=== PATIENT | female | born 1975 | race Caucasian/White ===

== ENCOUNTER → 2024-02-22 10:56 | Outpatient (REF) | payer OTHER, SELFPAY ==
[2024-02-23 15:57] LABS: Varicella Zoster IgG (VZV) Positive
== END ==
LOC: OHS 10:56
PROVIDERS: ATTENDING PHYSICIAN Nurse Practitioner Family
DX: Z23 Encounter for immunization (principal)
CPT/HCPCS: 86480; 86787

== ENCOUNTER 2025-08-10 02:56 | Inpatient (IN) | payer BC, SELFPAY ==
[2025-08-10] VITALS (30 sets, daily range): BP systolic 96–155; BP diastolic 59–89; PULSE 82–86; BMI 22.7
--- NOTE | 2025-08-10 01:44 | ED.GENMED ---
History of Present Illness
General
Chief Complaint: Dizziness
Time Seen by Provider: 08/10/25 01:31
History of Present Illness
History of Present Illness:
Patient is a 50-year-old woman with history of reflux, duodenal ulcer, gastritis presenting to the emergency department with lightheadedness. 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 She checked
her heart rate and it was in the 130s. She notes that lately with movement she has been becoming more lightheaded and dizzy. She states that she has rheumatoid arthritis and has been taking about 6 pills of Advil a day. She also notes that last
week she had a URI and was taking additional Advil. Last week she did have 3 episodes of melanotic stool. She did decrease her Advil and restarted her PPI. She does note that she is not compliant with her PPI. She last had a EGD in 2019 that
showed a duodenal ulcer as well as gastritis. She has not followed up with GI since then. She did have routine blood work done for her rheumatoid arthritis last week which showed a hemoglobin of 7.1. No chest pain hemoptysis hematemesis or
hematochezia. No abdominal pain. No vomiting or diarrhea. She does feel slightly dehydrated though has been trying to maintain hydration on shift.
Past History
Past History
ED Past Medical History: Other (Duodenal ulcer, RA)
ED Past Surgical History: Other (Nasal Polyps)
Social History
Tobacco: Non-smoker
Alcohol: None
Personal:
Living: with family
Employment: Employed
Phy Exam
Physical Exam
Physical Exam:
GENERAL: in no acute distress
HEENT: normocephalic, extraocular movements intact, dry oral mucosa
NECK: normal inspection
RESPIRATORY: no respiratory distress, clear to auscultation bilaterally
CARDIOVASCULAR: regular rhythm tachycardic rate
ABDOMEN/: soft, non-distended, non-tender to palpation, no rebound or guarding
EXTREMITIES: non-tender, no edema/swelling
NEUROLOGIC: awake and alert, moves all extremities
SKIN: warm
Course
Orders/Labs/Results
Orders:
Orders
08/10/25 01:07
EKG [Electrocardiogram (*1)] Urgent
Reason for Study: Bradycardia / Tachycardia
EKG- Treatment ONCE
08/10/25 01:34
Type And Crossmatch [Type+Screen] Urgent
Complete Blood Count/With Diff Urgent
Comprehensive Metabolic Panel Urgent
08/10/25 01:44
0.9% Sodium Chloride 1000 ml [Nss] 1,000 ml IV BOLUS
08/10/25 01:54
* Blood Bank Products Urgent
Blood Bank Products: *Packed RBC Leuko (PRBC's
Quantity: 1
Transfuse Today: Yes
Reason: Anemia
Abnormal Lab Results
08/10/25
01:34
WBC 4.5 L 10^3/uL
(4.8-10.8)
RBC 3.26 L 10^6/uL
(4.20-5.40)
Hgb 6.6 L* g/dL
(12.0-16.0)
Hct 22.2 L %
(37.0-47.0)
MCV 68.1 L fL
(81.0-99.0)
MCH 20.2 L pg
(27.0-31.0)
MCHC 29.7 L g/dL
(33.0-37.0)
RDW 17.2 H %
(11.5-14.5)
Absolute Lymphs (auto) 1.0 L 10^3/uL
(1.2-3.4)
Sodium 134 L mmol/L
(135-145)
Glucose 103 H mg/dl
(70-99)
08/10/25 01:34
08/10/25 01:34
Vital Signs
Initial and Last Documented VS:
Initial Vital Signs
Temp Pulse Resp BP Pulse Ox
97.4 F 121 24 155/89 100
08/10/25 01:02 08/10/25 01:02 08/10/25 01:02 08/10/25 01:02 08/10/25 01:02
Last Documented Vital Signs
Temp Pulse Resp BP Pulse Ox
97.4 F 123 11 155/89 100
08/10/25 01:02 08/10/25 01:30 08/10/25 01:30 08/10/25 01:02 08/10/25 01:50
MDM/Problems Addressed
Differential Diagnosis Includes:
Patient is a 50-year-old woman with history of duodenal ulcer, gastritis, reflux, rheumatoid arthritis who is presenting to the emergency department with episodes of lightheadedness upon standing, low hemoglobin outpatient as well as 3 episodes of
melanotic stool last week. On arrival vitals are notable for heart rate in the 120s. Exam does show dry oral mucosa. Concern for dehydration versus anemia secondary to upper GI bleed. Considered PE though less likely given patient's history and
exam. Will check blood work. EKG per my interpretation sinus tachycardia. Will give IV fluids in the interim. Anticipate admission.
*Pulse Oximetry
SaO2: 100
Patient hypoxic: no
*Critical Care Note
Total Time (30-74mins, 75-104mins- exclusive of procedures): Not Applicable
Update Note
Update Note:
Blood work notable for microcytic anemia. Patient has been consented for blood. Of note patient does state that she had IV iron transfusion in the past and needed steroids given concern for possible reaction related to her RA. I did discuss with
blood bank about a reaction of RA and PRBCs. None that they are aware of. out of abundance of caution we will give patient blood at a slower rate.
discussed with hospitalist who excepted patient to their service.
ED Attending Note
-
Portions of this chart may have been created with voice recognition software.� Occasional wrong word or��sound alike� substitutions may have occurred due to the inherent limitations of voice recognition software.
Discharge Plan
Departure
Patient Disposition: Admit
Date of Disposition: 08/10/25
Time of Disposition: 02:15
Presentation/result/management discussed w/ accepting MD/DO: Hospitalist
Discharge Problem:
Anemia
Prescriptions:
No Action
Mometasone Furoate [Nasonex] 17 GM [place].Pump
17 gm NS BID Qty: 1 0RF
Rx Instructions:
2 sprays in each nostril
Referrals:
Varsha Munoz DO [Family Provider, Family Practice]
Interventions
Interventions:
*Risk Screen - Suicide Last Done: 08/10/25 01:02
*General Assessment Last Done: 08/10/25 01:02
*Neglect/Abuse Screening Last Done: 08/10/25 01:02
*ED- Fall Risk Assessment Last Done: 08/10/25 01:37
*ED COVID-19 Vaccine History Last Done: 08/10/25 01:37
*ED Influenza Vaccine History Last Done: 08/10/25 01:37
Discharge Date and Time
Print Language: HUNGARIAN
[2025-08-10 01:54] LABS: Hematocrit 22.2 % (37.0-47.0); Hemoglobin 6.6 g/dL (12.0-16.0); Mean Corp Hgb Conc. 29.7 g/dL (33.0-37.0); Mean Corpuscular Volume 68.1 fL (81.0-99.0); Nucleated Red Blood Cells % 0 %; Platelet Count 270 10^3/uL (130-400); Red Cell Dist. Width 17.2 % (11.5-14.5)
[2025-08-10 02:14] LABS: ALT (SGPT) 16 U/L (0-35); AST (SGOT) 22 U/L (14-36); Albumin 4.4 g/dl (3.5-5.0); Alkaline Phosphatase 40 U/L (38-126); Blood Urea Nitrogen 14 mg/dl (7-17); Calcium 8.9 mg/dl (8.4-10.2); Carbon Dioxide 25 mmol/L (22-30); Chloride 104 mmol/L (98-107); Glucose 103 mg/dl (70-99); Potassium 3.8 mmol/L (3.5-5.1); Sodium 134 mmol/L (135-145); Total Protein 7.0 g/dl (6.3-8.2); eGFR > 60.00
--- NOTE | 2025-08-10 02:40 | HPS.HSE ---
Family Physician
-
Family Physician: Varsha Munoz, DO
Chief Complaint
-
Dizziness
History of Present Illness
This is a 37-year-old with past medical history of duodenal ulcer, gastritis, rheumatoid arthritis on Actemra, methotrexate and prednisone, Presents to the emergency department with lightheadedness that became worse with standing today.
Patient reports recent URI and has been taking a lot of NSAIDs. She reports that she did notice some melanotic stool last week and she has been having orthostatic dizziness. Symptoms became worse today while she was walking and she noticed her
heart rate in the 130s. She said her last bowel movement was 2 days ago and it was soft and brown. She reported that her last hemoglobin was 9 in June. She was diagnosed with iron deficiency in November and was to get an iron infusion. However
she did develop a reaction to iron dextran and she never followed up. She tried oral iron supplementation but did not tolerated due to stomach upset.
Patient reports diagnosis of duodenal ulcer in 2018 and had a EGD at that time. Was placed on Prilosec. Recently she has not been taking the Prilosec regularly. She also takes 2 mg of prednisone as well as methotrexate for RA. She denies any
alcohol use.
On arrival in the emergency department heart rate was in the 120s, blood pressure was 135/89 and she was satting 100% on room air. She was afebrile. Hemoglobin was 6.6 with MCV of 68 and normal WBCs and platelet. Electrolytes BUN/creatinine were
all in the normal range with a BUN of 14 and a creatinine of 0.6. LFTs were normal. ECG with sinus tachycardia at a rate of 112.
Medical History
Past Medical History
Past Medical History: Reports GERD (History of peptic ulcer disease), Hypothyroidism and Other (Rheumatoid arthritis.)
Past Surgical History: Reports None
Social History
Tobacco: Non-smoker
Alcohol: None
Drug: None
Family History
Family History: Not pertinent
Allergies / Home Medications
Allergies reflects when Allergies were last updated in [employer].
Home Medications with original date entered in [employer]
Allergy/Medication List:
Allergies
Allergy/AdvReac Type Severity Reaction Status Date / Time
No Known Allergies Allergy Verified 10/06/20 18:18
Home Medications
Prednisone 2 mg tablets, 2 mg p.o. at bedtime
Levothyroxine 112 mcg tablet, 112 mcg p.o. daily
Methotrexate 10 mg subcutaneous, 10 mg subcu weekly
Review of Systems
-
Constitutional: Reports No Symptoms
EENT: Reports No Symptoms
Respiratory: Reports No Symptoms
Cardiac: Reports No Symptoms
Abdomen/GI: Reports Black Stools
: Reports No Symptoms
Musculoskeletal: Reports No Symptoms
Skin: Reports No Symptoms
Neurological: Reports Dizzy
Endocrine: Reports No Symptoms
Hematologic/Lymphatic: Reports No Symptoms
Psych: Reports No Symptoms
Physical Exam
Vital Signs
Vital Signs
Temp Pulse Resp BP Pulse Ox
97.4 F 123 11 155/89 100
08/10/25 01:02 08/10/25 01:30 08/10/25 01:30 08/10/25 01:02 08/10/25 01:50
Physical Exam
General: Well Developed, Well Nourished and No Apparent Distress
HEENT: NormoCephalic, Moist mucous membranes and Atraumatic
Respiratory: Clear
Cardiac: S1/S2 and Regular Rhythm; No Murmur or Rub
GI: Soft, Non Tender, Non Distended and Normal Bowel Sounds; No Organomegaly
Rectal: Deferred by Provider
Musculoskeletal: No Clubbing, No Cyanosis and No Edema
Skin: No Rash
Neuro: Nonfocal/grossly intact
Laboratory Results
-
08/10/25 01:34
08/10/25 01:34
Laboratory Results
Total Bilirubin 0.4 mg/dl (0.2-1.3) 08/10/25 01:34
AST 22 U/L (14-36) 08/10/25 01:34
ALT 16 U/L (0-35) 08/10/25 01:34
Alkaline Phosphatase 40 U/L (38-126) 08/10/25 01:34
Data Reviewed
-
Medical Tests (Nuc Med, Echo, EKG etc): Image Personally Visualized and interpreted
Lab Data: Labs Reviewed by me
Old Records: Reviewed
Impression/Plan
-
IMPRESSION:
50-year-old female with past medical history significant for GERD and duodenal ulcer presents to the emergency department with tachycardia and orthostatic dizziness. Found to have a hemoglobin of 6.6. Recent episodes of increased NSAID use and
melanotic stools. Guaiac positive stool examination. Likely gastritis versus new peptic ulcer.
PLAN:
GI bleed -suspect upper GI bleed secondary to NSAIDs causing gastritis or worsening gastric ulcer. She is hemodynamically stable. Hemoglobin 6.6. Platelets are normal.
-Admit to IMU
-N.p.o. for now except sips and ice chips
-Type and screen
-Transfusing 1 unit now
-Trend H&H and transfuse for hemoglobin less than 7
-Check iron panel
-PPI IV drip
-GI consultation
Iron deficiency anemia -reports history of iron deficiency diagnosed in November. MCV 68. Did not tolerate iron dextran.
- Iron panel as above
- Transfusion
- Consider alternative formulation such as Ferric gluconate vs oral supplementation
DVT prophylaxis with SCDs
CODE STATUS�full code
[2025-08-10] MEDS: NSS 1000 IV (03:04)
[2025-08-10] MEDS: PROTONIX IV 80 MG IV (03:05)
[2025-08-10] MEDS: PROTONIX 100 IV ×3 (03:05→21:41)
[2025-08-10 03:11] LABS: Total Iron Binding Capacity 445 ug/dl (265-497)
[2025-08-10 03:22] LABS: Iron < 20 ug/dl (37-170)
[2025-08-10 03:38] LABS: Ferritin 4.0 ng/ml (11.1-264.0)
[2025-08-10] MEDS: XANAX 0.25 MG PO (04:22)
[2025-08-10] MEDS: TYLENOL 650 MG PO ×2 (06:16→21:58)
[2025-08-10] MEDS: SYNTHROID 112 MCG PO (06:17)
--- NOTE | 2025-08-10 07:36 | PTCARENOTE ---
Received verbal report from WINSOME Vogel. Pt arrived to floor via stretcher with at bedside with blood transfusing. Protonix gtt infusing per Rx. Patient aaox3, denies pain. NSR on monitor. SpO2 99% on RA. VS and assessment as documented.
Admission completed. Patient resting in bed with call hdez in reach.
--- NOTE | 2025-08-10 07:53 | CON.GI ---
Addendum entered and electronically signed by Tonia Ocampo MD 08/10/25 09:51:
I saw and examined the patient.
The JOCKEY'S AGENT's note was reviewed and I agree with the note.
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
daily before bedtime, history of DU with UGIB from NSAID use in 2019 and rest of medical history as below who presented to the emergency room with symptoms of fatigue and dizziness and was noted to have a hemoglobin of 6.6 and received 1 unit of
packed red blood cells. Her iron studies are also consistent with iron deficiency anemia with a ferritin of 4 but she says that she was diagnosed with iron deficiency anemia in November and was scheduled for an iron infusion but had an allergic
reaction and has not followed for repeat. about 7-10 days ago had an episode of melena with maroon stool and then for a few days later she had black stool but the last 4 to 5 days her stools have been brown and her last BM was about 2 days ago. She
has been off the PPI. Currently denies any abdominal pain. No nausea vomiting or hematemesis. She had been increasing more NSAID use recently because of recent URI also.
Assessment and plan symptomatic significant anemia likely from acute blood loss anemia and also chronic iron deficiency anemia which was diagnosed in November. She had acute blood loss with maroon stools and black stools about 7 to 10 days ago but for
the last couple of days her stools have been brown most likely the bleeding has resolved and is most likely related to recurrent PUD she has history of this in 2019 from NSAID use and recently has been using more NSAIDs and is also on chronic
prednisone therapy for RA. I encouraged her to avoid NSAID use and will need a PPI indefinitely given that she is presented twice with upper GI bleed from PUD. Will schedule her for endoscopy on Tuesday but will be performed sooner if she has any
further bleeding. She received 1 unit of packed red blood cells but most likely will repeat hemoglobin and may need another unit based on the hemoglobin. She will also need follow-up with hematology for alternate iron infusions as outpatient she
apparently had an allergic reaction to one of the IV iron infusions in the past. Was unable to tolerate oral iron. Apparently her colonoscopy was also in 2019 along with her endoscopy in 2019 at [facility] but most likely will also need to
repeat colonoscopy which she can follow-up with her outpatient GI at [place] after DC or with us.
Original Note:
Consultation
-
Date/Time Consultation Requested: 08/10/25 220
Date/Time Consultation Performed: 08/10/25 18
Requesting Provider: Dr. Guerrero
Performing Provider: Dr. Ocampo/LUIGI Ling
Reason for Consultation: symptomatic anemia, GI Bleed, Hx DU
Medical History
Chief Complaint / HPI
Chief Complaint: dizziness
History of Present Illness:
50-year-old female with past medical history of RA, hypothyroidism GERD, history of duodenal ulcer (2019), tracheal stenosis status postdilatation, current medications include prednisone 2 mg, methotrexate, Actemra, levothyroxine and ibuprofen
anywhere between 800 mg and 1200 mg at bedtime presents to the emergency room with dizziness, lightheadedness while at work. 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 She had a heart rate in the 130s. 1 week ago she had episodes of melena and maroon stool. She
proceeded to the emergency room for further evaluation. She does have a history of duodenal ulcer with bleeding secondary to NSAID and prednisone use in 2019 in the [facility] area. She states at that time she had 2 duodenal ulcers and
gastritis. She was placed on PPI but is not compliant with this. She also had a colonoscopy at that time was 'normal'. She was recommended 10-year follow-up. She has some mild dyspnea on exertion but denies any chest pain or shortness of breath.
Her last bowel movement was 2 days ago. She denies any fevers, chills, nausea, vomiting, dysphagia or odynophagia. She denies any early satiety or unintended weight loss. She presents to the emergency room with a hemoglobin of 6.6. She was
given 1 unit of packed red blood cells that just finished at this present time. Repeat hemoglobin will be obtained at 9 AM. She states that she is feeling a 'little bit better'. WBC 4.5, hemoglobin 6.6, hematocrit 22.2, platelets 270, MCV 68.1,
MCV 20.2, sodium 134, potassium 3.8, BUN 14, creatinine 0.6, glucose 103, iron less than 20, TIBC 445, percent iron saturation unable to be calculated, ferritin 4, total bilirubin 0.4, AST 22, ALT 16, alk phos 40, albumin 4.4
Past Medical History
Past Medical History: Other (Rheumatoid arthritis, hypothyroidism, GERD, duodenal ulcer, tracheal stenosis status post dilatation)
Past Surgical History: Other (Tracheal stenosis dilatation, nasal polyps, septum surgery, hand surgery)
Social History
Tobacco: Non-Smoker
Alcohol: None
Drug: None
Employment: Employed
Family History
Family History: Other (Grandfather with possible colon cancer otherwise no family history of GI malignancy or IBD)
Allergies / Home Medications
Allergy/AdvReac Type Severity Reaction Status Date / Time
No Known Allergies Allergy Verified 10/06/20 18:18
�Medication �Instructions �Recorded
Mometasone Furoate [Nasonex] 17 gm NS BID ##1 10/18/21
levothyroxine 112 mcg tablet 112 mcg PO DAILY Thyroid 08/10/25
prednisone 2 mg tablet,delayed 2 mg PO HS RA 08/10/25
release
Review of Systems
-
All other systems: A 12 pt ROS was Negative except as stated above in HPI
Vital Signs
Temp Pulse Resp BP Pulse Ox
98.3 F 80 16 107/69 99
08/10/25 07:12 08/10/25 07:12 08/10/25 07:12 08/10/25 07:12 08/10/25 07:12
Physical Exam
Exam
General: No Apparent Distress
HEENT: Anicteric
Respiratory: Clear
Cardiac: Regular Rhythm
GI: Soft, Non Tender, Non Distended and Normal Bowel Sounds
Skin: Warm and Dry
Neuro: AO x 3
Psych: Calm
Results
WBC 4.5 10^3/uL (4.8-10.8) L 08/10/25 01:34
Hgb Cancelled 08/10/25 11:55
Hct Cancelled 08/10/25 11:55
MCV 68.1 fL (81.0-99.0) L 08/10/25 01:34
Plt Count 270 10^3/uL (130-400) 08/10/25 01:34
Absolute Neuts (auto) 2.9 10^3/uL (1.4-6.5) 08/10/25 01:34
Sodium 134 mmol/L (135-145) L 08/10/25 01:34
Potassium 3.8 mmol/L (3.5-5.1) 08/10/25 01:34
Chloride 104 mmol/L (98-107) 08/10/25 01:34
Carbon Dioxide 25 mmol/L (22-30) 08/10/25 01:34
BUN 14 mg/dl (7-17) 08/10/25 01:34
Creatinine 0.6 mg/dL (0.6-1.0) 08/10/25 01:34
Calcium 8.9 mg/dl (8.4-10.2) 08/10/25 01:34
Total Bilirubin 0.4 mg/dl (0.2-1.3) 08/10/25 01:34
AST 22 U/L (14-36) 08/10/25 01:34
ALT 16 U/L (0-35) 08/10/25 01:34
Alkaline Phosphatase 40 U/L (38-126) 08/10/25 01:34
Diagnostic Image Results:
None this admission
Prior GI Procedures:
EGD: [facility]. Per patient '2 duodenal ulcers, gastritis'. Records unavailable to us
Colonoscopy: 2018, [facility]. Per patient 'normal'. Recommended repeat colonoscopy 10 years. Records unavailable to us
Assessment / Plan
-
50-year-old female with past medical history of RA, hypothyroidism GERD, history of duodenal ulcer (2019), tracheal stenosis status postdilatation, current medications include prednisone 2 mg, methotrexate, Actemra, levothyroxine and ibuprofen
anywhere between 800 mg and 1200 mg at bedtime presents to the emergency room with dizziness, lightheadedness while at work. 1 week ago she had melena and maroon stools. No bowel movement in 2 days. Hemoglobin is 6.6. BUN is within normal
limits. She does have iron deficiency anemia. Currently transfuse 1 unit. Awaiting repeat labs. Currently not on PPI therapy.
Impression:
Symptomatic anemia
Melena/maroon stool 1 week ago
History of gastric ulcers (2019)
RA, on prednisone 2 mg, methotrexate and Actemra
NSAID use daily (ibuprofen 800-1200 mg nightly)
Plan:
- Patient already received 1 unit of packed red blood cells, repeat hemoglobin due at 9 AM. Anticipate patient may need another unit of packed red blood cells considering degree of anemia, symptomatic and iron deficiency.
- Continue pantoprazole drip
- Okay for clear liquids, no red
- Will plan on endoscopy prior to discharge
- Repeat hemoglobin 9 AM, 3 PM, CBC in a.m.
- Discussed with patient no further NSAIDs and compliance with PPI daily
- Further recommendations to be fourth coming
-
-
Thank you for consultation and allowing me to participate in the patient's care. Please call the automation test engineer GI physician during the after hours with any questions or concerns.
[2025-08-10] MEDS: D5/0.45%NACL 1000 IV (08:25)
[2025-08-10 09:59] LABS: Hematocrit 24.1 % (37.0-47.0); Hemoglobin 7.3 g/dL (12.0-16.0); Mean Corp Hgb Conc. 30.3 g/dL (33.0-37.0); Mean Corpuscular Volume 71.9 fL (81.0-99.0); Platelet Count 245 10^3/uL (130-400); Red Cell Dist. Width 17.9 % (11.5-14.5)
[2025-08-10 10:15] LABS: Blood Urea Nitrogen 10 mg/dl (7-17); Calcium 8.3 mg/dl (8.4-10.2); Carbon Dioxide 26 mmol/L (22-30); Chloride 109 mmol/L (98-107); Glucose 116 mg/dl (70-99); Potassium 3.6 mmol/L (3.5-5.1); Sodium 135 mmol/L (135-145); eGFR > 60.00
--- NOTE | 2025-08-10 11:33 | W.PN.HOSP.TC ---
Today's Communication/Plan
-
Blood transfusion. PPI.
Assessment / Plan
Assessment / Plan
Physical exam:
General: Acutely ill
HEENT: Normocephalic, Atraumatic and Moist Mucous Membranes
Respiratory: Clear to Auscultation; Negative Wheezes, Rales or Rhonchi
Cardiac: Regular Rhythm and S1/S2
GI: Soft, Nontender and Nondistended
Musculoskeletal: No Clubbing, No Cyanosis and No Edema
Neuro: Awake, Alert and Oriented
Psych: Calm
A/P:
Acute GI bleed:
Continue IV Protonix drip
GI consult appreciated
Continue to monitor hemoglobin
Plan for EGD on Tuesday
Acute blood loss anemia/KAYLYNN:
Status post blood transfusion
Will transfuse 1 unit of blood today since patient is still with symptomatic anemia and also in preparation for possible procedure.
Continue to monitor hemoglobin posttransfusion
Rheumatoid arthritis:
On methotrexate and steroids as outpatient as well as NSAIDs and Actemra
History of peptic ulcer disease in the past:
Not on PPI prior to admission
Hypothyroidism:
Continue thyroid replacement
DVT prophylaxis:
SCDs
CODE STATUS:
Full code
Total time spent on today's encounter was 52 minutes which included time spent in counseling the patient/family regarding diagnosis and treatment plan as listed above, goals of care, and symptom management. Case was discussed with nursing staff,
specialists, and care coordinators/case management. All labs and imaging personally reviewed by me. Remainder the time spent in detailed review of previous records, lab data, imaging, and other medical provider documentation.
Anticipated Discharge: > 48 hours
Subjective/Interval History
-
Date of Service: August 10, 2025
Patient feels with lightheadedness this morning. No abdominal pain or hematemesis. No bowel movement yet.
Objective Data
-
Labs:
Laboratory Results
08/10/25 08/10/25 08/10/25
01:34 09:00 09:46
WBC 4.5 L 3.3 L
Hgb 6.6 L* Pending 7.3 L
Hct 22.2 L Pending 24.1 L
Plt Count 270 245
Sodium 134 L 135
Potassium 3.8 3.6
Chloride 104 109 H
Carbon Dioxide 25 26
BUN 14 10
Creatinine 0.6 0.6
Glucose 103 H 116 H
Calcium 8.9 8.3 L
Total Bilirubin 0.4
AST 22
ALT 16
Alkaline Phosphatase 40
08/10/25 08/10/25
11:55 15:00
WBC
Hgb Cancelled Pending
Hct Cancelled Pending
Plt Count
Sodium
Potassium
Chloride
Carbon Dioxide
BUN
Creatinine
Glucose
Calcium
Total Bilirubin
AST
ALT
Alkaline Phosphatase
Vital Signs:
Vital Signs
Temp Pulse Resp BP Pulse Ox
97.8 F 86 20 106/71 98
08/10/25 11:23 08/10/25 11:23 08/10/25 11:23 08/10/25 11:23 08/10/25 11:02
I&O
08/09/25 08/10/25 08/11/25
06:59 06:59 06:59
Intake Total 0 / 0 250 / 250
Balance 0 / 0 250 / 250
--- NOTE | 2025-08-10 13:27 | CM ---
Patient seen at bedside in IMU. Patient states that she lives with her in a 2 story home. Patient has no DME and she uses the [facility] in [place] for pharmacy needs. Patient PCP is Dr. Varsha Munoz. Patient plan is for home with no needs.
Patient works here at [employer]. Patient plan is for discharge home with no needs. CM will continue to follow for discharge planning needs.
Plan; home with no needs anticipated
[2025-08-10 16:55] LABS: Hematocrit 24.5 % (37.0-47.0); Hemoglobin 7.8 g/dL (12.0-16.0)
--- NOTE | 2025-08-10 17:26 | PTCARENOTE ---
Pt's assessment and care as documented. Aox3. VSS. 2U PRBC's administered, pt tolerated well. Labs drawn and sent. Tolerating clear liquids. Ringing appropriately, call hdez within reach.
--- NOTE | 2025-08-10 19:30 | PTCARENOTE ---
pt aao, no c/o pain. denies dizziness and no bm's. pt assisted to bsc w/o issue. reviewed plan for egd on tuesday. call hdez in reach.
[2025-08-10] MEDS: DELTASONE 2 MG PO (21:58)
[2025-08-11] VITALS (16 sets, daily range): BP systolic 90–136; BP diastolic 59–88
[2025-08-11] MEDS: D5/0.45%NACL 1000 IV (03:02)
[2025-08-11] MEDS: SYNTHROID 112 MCG PO (05:49)
[2025-08-11 06:04] LABS: Hematocrit 25.2 % (37.0-47.0); Hemoglobin 7.9 g/dL (12.0-16.0); Mean Corp Hgb Conc. 31.3 g/dL (33.0-37.0); Mean Corpuscular Volume 72.6 fL (81.0-99.0); Platelet Count 213 10^3/uL (130-400); Red Cell Dist. Width 18.3 % (11.5-14.5)
[2025-08-11 06:36] LABS: Blood Urea Nitrogen 5 mg/dl (7-17); Calcium 8.3 mg/dl (8.4-10.2); Carbon Dioxide 24 mmol/L (22-30); Chloride 111 mmol/L (98-107); Estimated Creatinine Clearance 104 ml/min; Glucose 92 mg/dl (70-99); Potassium 4.1 mmol/L (3.5-5.1); Sodium 139 mmol/L (135-145); eGFR > 60.00
[2025-08-11] MEDS: PROTONIX 100 IV (07:51)
--- NOTE | 2025-08-11 09:11 | W.PN.GI.CBS2 ---
Today's Communication / Plan
-
EGD in AM
Assessment / Plan
-
50-year-old female with past medical history of RA, hypothyroidism GERD, history of duodenal ulcer (2019), tracheal stenosis status postdilatation, current medications include prednisone 2 mg, methotrexate, Actemra, levothyroxine and ibuprofen
anywhere between 800 mg and 1200 mg at bedtime presents to the emergency room with dizziness, lightheadedness while at work. 1 week ago she had melena and maroon stools. No bowel movement in 2 days. Hemoglobin is 6.6. BUN is within normal
limits. She does have iron deficiency anemia. Currently transfuse 1 unit. Awaiting repeat labs. Currently not on PPI therapy.
Impression:
Symptomatic anemia
Melena/maroon stool 1 week ago
History of gastric ulcers (2019)
RA, on prednisone 2 mg, methotrexate and Actemra
NSAID use daily (ibuprofen 800-1200 mg nightly)
Plan:
- Hemoglobin improved with 2 units of packed red blood cells since admission
- Continue pantoprazole will change to twice daily and DC drip since no further active bleeding since admission
- Okay for low residue diet today and n.p.o. past MN for endoscopy tomorrow
- Discussed with patient no further NSAIDs and compliance with PPI daily
- KAYLYNN -Will also need hematology follow-up as outpatient for iron infusion if able to tolerate a different form of iron and if unable to do then encouraged her to take oral iron with vitamin C
- She does want to schedule colo with us after DC will try to get records from her outpatient GI at [facility]
Subjective
Subjective
Date of Service: August 11, 2025
No bowel movement since admission, received another unit of packed red blood cells yesterday and hemoglobin improved, denies abdominal pain or vomiting
Objective
Data Reviewed
Laboratory Data:
Laboratory Results
08/11/25 05:45
08/11/25 05:45
Laboratory Results
Total Bilirubin 0.4 mg/dl (0.2-1.3) 08/10/25 01:34
AST 22 U/L (14-36) 08/10/25 01:34
ALT 16 U/L (0-35) 08/10/25 01:34
Alkaline Phosphatase 40 U/L (38-126) 08/10/25 01:34
Vital Signs and I&O:
Vital Signs
Temp Pulse Resp BP Pulse Ox
98.0 F 64 16 103/75 99
08/11/25 07:54 08/11/25 06:10 08/11/25 06:10 08/11/25 06:10 08/11/25 06:10
I&O
08/10/25 08/11/25 08/12/25
06:59 06:59 06:59
Intake Total 0 / 0 2220 / 2220
Balance 0 / 0 2220 / 2220
Physical Exam
Physical Exam
Cardiology: Normal Sinus Rhythm
Pulmonary: Clear
GI: Soft, Non Distended, Non Tender and Normal Bowel Sounds
--- NOTE | 2025-08-11 12:06 | W.PN.HOSP.TC ---
Today's Communication/Plan
-
Continue PPI. Plan for EGD tomorrow
Assessment / Plan
Assessment / Plan
Physical exam:
General: Acutely ill
HEENT: Normocephalic, Atraumatic and Moist Mucous Membranes
Respiratory: Clear to Auscultation; Negative Wheezes, Rales or Rhonchi
Cardiac: Regular Rhythm and S1/S2
GI: Soft, Nontender and Nondistended
Musculoskeletal: No Clubbing, No Cyanosis and No Edema
Neuro: Awake, Alert and Oriented
Psych: Calm
A/P:
Acute GI bleed:
Change IV Protonix drip to IV Protonix twice daily
GI consult appreciated
Continue to monitor hemoglobin
Stop IV fluid
On low residue diet today and n.p.o. after midnight
Plan for EGD on Tuesday
Acute blood loss anemia/KAYLYNN:
Status post blood transfusion
Continue to monitor hemoglobin posttransfusion
Rheumatoid arthritis:
On methotrexate and steroids as outpatient as well as NSAIDs and Actemra
History of peptic ulcer disease in the past:
Not on PPI prior to admission
Hypothyroidism:
Continue thyroid replacement
DVT prophylaxis:
SCDs
CODE STATUS:
Full code
Total time spent on today's encounter was 35 minutes which included time spent in counseling the patient/family regarding diagnosis and treatment plan as listed above, goals of care, and symptom management. Case was discussed with nursing staff,
specialists, and care coordinators/case management. All labs and imaging personally reviewed by me. Remainder the time spent in detailed review of previous records, lab data, imaging, and other medical provider documentation.
Anticipated Discharge: 24 - 48 hours
Subjective/Interval History
-
Date of Service: August 11, 2025
Patient feels better overall today. No lightheadedness. No bowel movement yet. No abdominal pain nausea or vomiting. No hematemesis
Objective Data
-
Labs:
Laboratory Results
08/11/25
05:45
WBC 3.2 L
Hgb 7.9 L
Hct 25.2 L
Plt Count 213
Sodium 139
Potassium 4.1
Chloride 111 H
Carbon Dioxide 24
BUN 5 L
Creatinine 0.6
Glucose 92
Calcium 8.3 L
Vital Signs:
Vital Signs
Temp Pulse Resp BP Pulse Ox
98.0 F 84 16 121/82 98
08/11/25 07:54 08/11/25 08:00 08/11/25 06:10 08/11/25 08:00 08/11/25 10:00
I&O
08/10/25 08/11/25 08/12/25
06:59 06:59 06:59
Intake Total 0 / 0 2219 / 2219
Balance 0 / 0 2219 / 222
[2025-08-11] MEDS: D5/0.45%NACL IV (15:16)
--- NOTE | 2025-08-11 17:10 | PTCARENOTE ---
see nursing flowsheet. pt tolerating low residue diet. pt denies abd pain, nausea. no c/o weakness or dizziness. ambulated to br with supervision. pt reported brown bm with no blood and not tarry.
[2025-08-11] MEDS: NSS (PRESERVATIVE FREE) 10 ML IV (20:32)
[2025-08-11] MEDS: PROTONIX IV 40 MG IV (20:33)
[2025-08-11] MEDS: DELTASONE 2 MG PO (20:33)
[2025-08-11] MEDS: TYLENOL 650 MG PO (20:34)
[2025-08-12] VITALS (8 sets, daily range): BP systolic 106–135; BP diastolic 62–95
--- NOTE | 2025-08-12 04:05 | PTCARENOTE ---
Caring for pt overnight. aaox3, pleasant. Denies pain. No signs of bleeding. VSS. Remains NPO after midnight for EGD, pt aware. no assessment changed. NSR. Remains RA. Will monitor.
[2025-08-12] MEDS: SYNTHROID PO (04:06)
[2025-08-12 06:04] LABS: Blood Urea Nitrogen 10 mg/dl (7-17); Calcium 8.9 mg/dl (8.4-10.2); Carbon Dioxide 26 mmol/L (22-30); Chloride 108 mmol/L (98-107); Estimated Creatinine Clearance 104 ml/min; Glucose 101 mg/dl (70-99); Potassium 4.3 mmol/L (3.5-5.1); Sodium 138 mmol/L (135-145); eGFR > 60.00
[2025-08-12 06:20] LABS: Hematocrit 29.8 % (37.0-47.0); Hemoglobin 9.3 g/dL (12.0-16.0); Mean Corp Hgb Conc. 31.2 g/dL (33.0-37.0); Mean Corpuscular Volume 71.0 fL (81.0-99.0); Platelet Count 288 10^3/uL (130-400); Red Cell Dist. Width 19.2 % (11.5-14.5)
--- NOTE | 2025-08-12 08:06 | W.PN.HOSP.TC ---
Today's Communication/Plan
-
see A/P
Assessment / Plan
Assessment / Plan
A/P:
# Acute blood loss anemia/KAYLYNN
# Acute GI bleed
Status post 2 units blood transfusion
Continue to monitor hemoglobin
Hgb today 9.3
Changed IV Protonix drip to IV Protonix twice daily
GI on board, plan for EGD 08/12
IV iron while in the hospital with plan to switch to PO at the time of discharge
# Rheumatoid arthritis:
On methotrexate and steroids as outpatient as well as NSAIDs and Actemra
# History of peptic ulcer disease in the past:
Not on PPI prior to admission
# Hypothyroidism:
Continue thyroid replacement
DVT prophylaxis: SCDs
CODE STATUS: Full code
Anticipated Discharge: 24 - 48 hours
Subjective/Interval History
-
Date of Service: August 12, 2025
Objective Data
-
Labs:
Laboratory Results
08/12/25
05:32
WBC 5.8
Hgb 9.3 L
Hct 29.8 L
Plt Count 288 D
Sodium 138
Potassium 4.3
Chloride 108 H
Carbon Dioxide 26
BUN 10
Creatinine 0.6
Glucose 101 H
Calcium 8.9
Vital Signs:
Vital Signs
Temp Pulse Resp BP Pulse Ox
36.6 C 100 18 115/67 99
08/12/25 07:46 08/12/25 06:04 08/11/25 12:18 08/12/25 04:00 08/11/25 10:15
I&O
08/11/25 08/12/25 08/13/25
06:59 06:59 06:59
Intake Total 2220 / 2220 240 / 240
Balance 2220 / 2220 240 / 240
Review of Systems
-
History Source: Patient
All other systems: Reviewed and negative
Physical Exam
-
General: Well Developed, Well Nourished, No Apparent Distress, Comfortable and Conversant; Negative Respiratory Distress
HEENT: Normocephalic, Atraumatic, Nose Appears Normal and Ears Appear Normal; Negative Oxygen
Respiratory: Clear to Auscultation and Non Labored Respirations; Negative Accessory Resp Muscle Use
Cardiac: Regular Rhythm and S1/S2
GI: Soft, Nontender, Nondistended and Normal Bowel Sounds
Skin: Warm and Dry
Neuro: Awake, Alert, Oriented and AO x 3
Psych: Calm and Intact Judgement/Insight
Data Reviewed
-
Labs: Labs Reviewed by me
[2025-08-12] MEDS: NSS (PRESERVATIVE FREE) 10 ML IV (08:53)
[2025-08-12] MEDS: PROTONIX IV 40 MG IV (08:53)
--- NOTE | 2025-08-12 11:25 | PTCARENOTE ---
Patient for GI lab, transported via stretcher, at bedside and aware of plan of care.
--- NOTE | 2025-08-12 11:28 | W.PN.UPDATE ---
Update Note
Progress Note Update
Endoscopy revealed nonbleeding gastric ulcers, continue Protonix 40 mg twice daily.. Avoid NSAIDs. Will repeat endoscopy in 2 months along with colonoscopy as outpatient.. Okay for LA home later today from GI perspective
--- NOTE | 2025-08-12 12:08 | PTCARENOTE ---
Patient returned from GI lab, she is awake, alert and oriented x3. Denies any pain, swallow and gag intact. Talking with friend and at bedside. VSS, NSR 74 HR.
--- NOTE | 2025-08-12 15:07 | CM ---
F/U: Patient required blood transfusions so now monitoring hemoglobin. PLAN: Anticipate Home No Needs.
--- NOTE | 2025-08-12 15:50 | W.DCSUMMARY ---
Discharge Summary
Discharge Data
Date of Admission: 08/10/25
Date of Discharge: 08/12/25
Total time spent discharging patient (in min): 40
-
Pending Results: No
Hospital Course
Principal Diagnosis:
Acute blood loss anemia/AKYLYNN.
Non-bleeding gastric ulcers
Chronic Diagnoses:�
Rheumatoid arthritis, on methotrexate, steroids, NSAIDs and Actemra
History of peptic ulcer disease in the past
Hypothyroidism, on thyroid replacement
Consultations:�
Gastroenterology
Procedures:�
EGD 08/12/2025:
- Non-obstructing Schatzki ring.
- Small hiatal hernia.
- Non-bleeding gastric ulcers with no stigmata of bleeding.
Biopsied.
- Erosive gastropathy with no bleeding and no stigmata of recent
bleeding. Biopsied.
- Acquired deformity in the gastric antrum likely from prior healed
ulcers.
- Normal examined duodenum.
Clinical course:�
This is a 50-year-old female, with past medical history as stated above, who presented with lightheadedness. She was found anemic with hemoglobin 6.6 on admission.
Problem 1:
Acute blood loss anemia/KAYLYNN.
Her hemoglobin was at 6.6 on admission. The patient received 2 units blood transfusion, and her hemoglobin improved to 9.3 on the day of discharge.
She received IV Protonix while in the hospital and was discharged with oral Protonix 40 mg twice daily until further directed by GI outpatient.
She underwent EGD, with results as noted above.
She was also started with iron supplement which she can continue going forward.
As for the rest of her medical problems, they were stable during her hospital stay.
Discharge Plan
-
Patient Disposition: Home (Routine Discharge)
Discharge Diagnosis/Procedures: Acute blood loss anemia/KAYLYNN,
status post EGD which noted two non-bleeding gastric ulcers with no stigmata of bleeding
Condition: Good
Diet: As tolerated
Driving Restrictions: As prior to admission
Blood Work: CBC in 1 week with result to your PCP
Activity Restrictions/Additional Instructions:
Follow up biopsy results from EGD with GI outpatient.
Repeat upper endoscopy in 2 months with GI to check healing.
Perform a colonoscopy at appointment to be scheduled along with repeat EGD with GI.
Stand Alone Forms: Return to Work
Referrals:
Tonia Ocampo MD [Active, Gastroenterology] - in one to two weeks
Varsha Munoz DO [Family Provider, Family Practice] - in less than 1 week
Additional Discharge Medication Instructions: Continue with iron supplement
Take Protonix until further directed by her GI doctor
AVOID NSAIDS.
Prescriptions:
New
ferrous sulfate [FeroSul] 325 mg (65 mg iron) Tablet
325 mg PO DAILY Qty: 30 0RF
(DME) CBC
See Rx Instructions .Route .MEDSUPPLY Qty: 1 0RF
Rx Instructions:
CBC without diff
08/19-08/25, result to PCP
# GIB/gastric ulcer
pantoprazole [Protonix] 40 mg tablet,delayed release (DR/EC)
40 mg PO BID Qty: 60 0RF
Continued
Mometasone Furoate [Nasonex] 17 GM Ronks.Pump
17 gm NS BID Qty: 1 0RF
Rx Instructions:
2 sprays in each nostril
prednisone 2 mg Tablet,Delayed Release (Dr/Ec)
2 mg PO HS
levothyroxine 112 mcg Tablet
112 mcg PO DAILY
Discharge Orders:
Discharge Patient (As Directed); Ordered 08/12/25
Ordered By: Deanne Syed
Discharge Date and Time
Print Language: GEORGIAN
--- NOTE | 2025-08-12 18:05 | PTCARENOTE ---
pt had upper endo today. post endo vss. tolerating diet and no c/o nausea or pain. no dizziness when oob . no bm this shift. pt discharged home this afternoon at approx 1730. discharge instructions given and reviewed.
--- NOTE | 2025-08-13 08:27 | CM ---
F/U: Patient discharge with no needs. PLAN: DC with no needs.
== END 2025-08-12 17:35 | disposition home or self-care (01) | DRG 378 ==
LOC: IMU 02:56
PROVIDERS: Hospitalist; Nurse Practitioner; ADMITTING PHYSICIAN Internal Medicine; ATTENDING PHYSICIAN Internal Medicine; CONSULT PHYSICIAN Internal Medicine Gastroenterology; EMERGENCY PHYSICIAN Student in an Organized Health Care Education/Training Program; FAMILY PHYSICIAN Family Medicine
PROC: 0DB68ZX Excision of Stomach, Via Natural or Artificial Opening Endoscopic, Diagnostic (ICD-10-PCS; 2025-08-12)
PROC: 30233N1 Transfusion of Nonautologous Red Blood Cells into Peripheral Vein, Percutaneous Approach (ICD-10-PCS; 2025-08-12)
PROC: 0DB78ZX Excision of Stomach, Pylorus, Via Natural or Artificial Opening Endoscopic, Diagnostic (ICD-10-PCS; 2025-08-12)
DX: K25.4 Chronic or unspecified gastric ulcer with hemorrhage (principal); D62 Acute posthemorrhagic anemia; K22.2 Esophageal obstruction; K44.9 Diaphragmatic hernia without obstruction or gangrene; K31.89 Other diseases of stomach and duodenum; Z79.890 Hormone replacement therapy; Z79.631 Long term (current) use of antimetabolite agent; D50.9 Iron deficiency anemia, unspecified; K21.9 Gastro-esophageal reflux disease without esophagitis; E03.9 Hypothyroidism, unspecified; M06.9 Rheumatoid arthritis, unspecified; Z79.52 Long term (current) use of systemic steroids
CPT/HCPCS: 36430; 80048; 80053; 82728; 83540; 83550; 85014; 85018; 85025; 85027; 86850; 86900; 86901; 86920; 88305; 88342; 93005; 96365; 96366; 99285; J2916; P9016